=== PATIENT | female | born 1985 | race Two or more races ===

== ENCOUNTER 2021-05-14 00:38 | Emergency (ER) | payer SELFPAY ==
[~2021-05-14] VITALS: Ht 167.6 cm; Wt 64.0 kg
[2021-05-14 01:08] VITALS: BP 120/77
== END 2021-05-14 04:56 | disposition left against medical advice (07) ==
LOC: ER 00:38
DX: R10.9 Unspecified abdominal pain (principal); Z90.49 Acquired absence of other specified parts of digestive tract; Z86.73 Personal history of transient ischemic attack (TIA), and cerebral infarction without residual deficits; Z98.890 Other specified postprocedural states
CPT/HCPCS: 93005; 99283